=== PATIENT | female | born 1965 | race American Indian/Alaskan Native ===

== ENCOUNTER 2024-04-02 13:25 | Inpatient (IN) | payer OTHER ==
[~2024-04-02] VITALS: Ht 157.5 cm; Wt 65.8 kg
[~2024-04-02 13:25] MED LIST: ACYC400 PO; ALBU90OI INH; AMYLIPPROE PO; ASPI81CH PO; ATEN25; ATEN25 PO; Antivert25 MG PO; Aspirin EC81 MG PO; BELPHEELB PO; BENZ100A PO; BISA5EC PO; BLUE GREEN ALGAE; CEPH500 PO; CHOL10002 PO; CLIN300; CLIN300 PO; CLON.5 PO; CLON2 PO; CONEST1.25 PO; CYCL10 PO; DIAZ10 PO; DIAZ5 PO; DILT120 PO; DIPH50 PO; DOXY100 PO; Daily Multivit1 EAC2 PO; Diflucan50 MG PO; EEMT HS; ESTMET PO; ESTMETHS PO; ESTR1 PO; ESTRATEST; FAMO20 PO; GABA100 PO; GABA300 PO; HERBAL; HYDACE10B PO; HYDACE5 PO; HYDHOMSY PO; IBUHYD PO; Inderal40 MG; KAPIDEX PO; LAVAP17G PO; LEVE500 PO; LEVFLO500 PO; LEVSOD100 PO; LEVSOD50 PO; LEVSOD75; LORA.5 PO; LORA1 PO; LORA2 PO; METO25ER PO; MULVITMIND PO; NAPR500 PO; NEBI10 PO; NORT25 PO; OLAN10; OMEP10ER PO; OMEP20ER PO; OMEP40CA12 PO; ONDA4 PO; ONDA4ODT MM; OXYACE5T PO; OXYASA5T PO; OXYC10TA19 PO; OXYC5 PO; PHENO100 PO; PHENY100ER PO; PRAV20 PO; PREVPAC PO; PROM25 PO; Prozac20 MG; QUET200 PO; RANI150 PO; RXCEPH500 PO; RXCYCL10 PO; RXHYDACE PO; RXHYDMOR2 PO; RXLORA1 PO; SAPHRIS10 MG SL; SAPHRIS5 MG SL; SPIRULINA; SUCR1 PO; SUCR1SU PO; SULTRIDS PO; SUMA25 PO; Ultram50 MG PO; [UNRECOGNIZED DRUG - OTHER]; [UNRECOGNIZED DRUG - OTHER]
[2024-04-02 13:56] LABS: BASOPHILS ABSOLUTE AUTO 0.06 K/mm3 (0.00-0.23); BASOPHILS PERCENT AUTO 1 % (0-2); EOSINOPHILS ABSOLUTE AUTO 0.08 K/mm3 (0.00-0.68); EOSINOPHILS PERCENT AUTO 1 % (0-6); Hematocrit 41.6 % (33.0-51.0); Hemoglobin 13.4 g/dL (11.5-16.0); IMMATURE GRAN ABSOLUTE AUTO 0.03 K/mm3 (0.00-0.10); IMMATURE GRAN PERCENT AUTO 0 % (0-1); LYMPHOCYTES ABSOLUTE AUTO 2.27 K/mm3 (0.84-5.20); LYMPHOCYTES PERCENT AUTO 26 % (21-46); MONOCYTES ABSOLUTE AUTO 0.84 K/mm3 (0.16-1.47); MONOCYTES PERCENT AUTO 10 % (4-13); Mean Corpuscular HGB 28.9 pg (26.0-34.0); Mean Corpuscular HGB Conc 32.2 g/dL (31.5-36.5); Mean Corpuscular Volume 90 fL (80-100); Mean Platelet Volume 9.8 fL (9.1-12.4); NEUTROPHILS ABSOLUTE AUTO 5.36 K/mm3 (1.96-9.15); NEUTROPHILS PERCENT AUTO 62 % (41-73); Platelet Count 340 K/mm3 (150-400); RDW Coefficient Variation 15.3 % (11.7-14.2); RDW Standard Deviation 49.7 fL (35.1-46.3); Red Blood Cell Count 4.63 M/mm3 (3.80-5.20); White Blood Cell Count 8.64 K/mm3 (4.00-11.30)
[2024-04-02 14:25] LABS: Albumin, Blood 2.9 g/dL (3.4-5.0); Albumin/Globulin Ratio 0.8 (0.8-1.8); Bilirubin, Total 0.9 mg/dL (0.1-1.0); Bun/Creatinine Ratio 17.9 (12.0-20.0); Calcium, Blood 8.9 mg/dL (8.5-10.1); Creatinine, Blood 0.73 mg/dL (0.40-1.00); Globulin, Blood 3.8 g/dL (2.2-4.0); Potassium, Blood 4.4 mmol/L (3.5-5.5); Total Protein, Blood 6.7 g/dL (6.4-8.2)
[2024-04-02] MEDS ORDERED: Furosemide 10 MG / ML 2ML Vial IV ONE (14:55)
[2024-04-02] MEDS ORDERED: Ondansetron HCl 2 MG / ML 2ML Vial IV ONE (15:05)
[2024-04-02] MEDS ORDERED: Morphine Sulfate 4 MG/1 ML Injection IV ONE (15:10)
[2024-04-02 16:02] LABS: Influenza A, PCR NEGATIVE (NEGATIVE); Influenza B, PCR NEGATIVE (NEGATIVE); Resp Syncytial Virus, PCR NEGATIVE (NEGATIVE)
[2024-04-02 16:03] LABS: SARS-Cov-2 (COVID-19) PCR, MMC POSITIVE (NEGATIVE)
[2024-04-02 16:42] LABS: Source, Urine Clean Catch
[2024-04-02 16:47] LABS: Bilirubin, Urine Neg (Neg); Blood, Urine 1+ (Neg); Glucose Qualitative, Urine Neg (Neg); Ketones, Urine Neg (Neg); Leukocyte Esterase, Urine Neg (Neg); Nitrite, Urine Neg (Neg); Protein, Urine 2+ (Neg); Urobilinogen, Urine NORM (Normal)
[2024-04-02 17:04] LABS: U Amphetamine Screen DETECTED; U Cannabinoids Screen DETECTED; U Methamphetamine Screen DETECTED
[2024-04-02 17:04] LABS: Appearance, Urine Clear (Clear); Color, Urine Pale Yellow (P-Yellow)
[2024-04-02 17:05] LABS: Bacteria Rare /hpf; Red Blood Cells, Urine 0-2 /hpf (0-2); Squamous Epithelial Cells Few /hpf (Few); White Blood Cells, Urine 0-2 /hpf (0-5)
[2024-04-02 17:05] LABS: U Barbituate Screen Not Detected; U Benzodiazapine Screen DETECTED; U Buprenorphine Screen Not Detected; U Cocaine Screen Not Detected; U Methadone Screen Not Detected; U Oxycodone Screen Not Detected; U Phencyclidine Screen Not Detected
[2024-04-02 17:26] LABS: U Opiates Screen DETECTED
[2024-04-02] MEDS ORDERED: FLU VACC TS2024-25(6MOS UP)/PF 45 MCG/0.5 ML SYRINGE IM ONE (17:50)
[2024-04-02] MEDS ORDERED: Albuterol 2.5 MG/3 ML VIAL INH PRN (17:50)
[2024-04-02] MEDS ORDERED: Remdesivir (EUA) 200 MG in NS 250 ML IV ONE (17:55)
[2024-04-02] MEDS ORDERED: dexAMETHasone 4 MG TAB PO SCH (18:00)
[2024-04-03 05:44] LABS: Hematocrit 42.3 % (33.0-51.0); Hemoglobin 13.3 g/dL (11.5-16.0); Mean Corpuscular HGB 28.6 pg (26.0-34.0); Mean Corpuscular HGB Conc 31.4 g/dL (31.5-36.5); Mean Corpuscular Volume 91 fL (80-100); Mean Platelet Volume 10.2 fL (9.1-12.4); Platelet Count 350 K/mm3 (150-400); RDW Coefficient Variation 15.4 % (11.7-14.2); RDW Standard Deviation 50.4 fL (35.1-46.3); Red Blood Cell Count 4.65 M/mm3 (3.80-5.20); White Blood Cell Count 3.89 K/mm3 (4.00-11.30)
[2024-04-03 06:20] LABS: Magnesium, Blood 1.9 mg/dL (1.6-2.4); Thyroid Stimulating Hormone 1.2 uIU/mL (0.360-4.800)
[2024-04-03 06:21] LABS: Albumin, Blood 2.9 g/dL (3.4-5.0); Albumin/Globulin Ratio 0.7 (0.8-1.8); Bilirubin, Total 0.6 mg/dL (0.1-1.0); Bun/Creatinine Ratio 19.7 (12.0-20.0); Calcium, Blood 8.7 mg/dL (8.5-10.1); Creatinine, Blood 0.71 mg/dL (0.40-1.00); Phosphorus, Blood 4.1 mg/dL (2.5-4.9); Potassium, Blood 4.5 mmol/L (3.5-5.5); Total Protein, Blood 6.9 g/dL (6.4-8.2)
[2024-04-03] MEDS ORDERED: Furosemide 10 MG/ML 4ML Vial IV SCH ×2 (09:00→19:00)
[2024-04-03] MEDS ORDERED: Enoxaparin 40 MG/0.4 ML SYR SC SCH (09:00)
[2024-04-03 10:15] VITALS: BP 137/103
[2024-04-03] MEDS ORDERED: Acetaminophen 325 MG TABLET PO PRN (10:35)
[2024-04-03 11:07] VITALS: BP 143/99
[2024-04-03] MEDS ORDERED: TraMADol HCl 50 MG Tab PO PRN (14:00)
[2024-04-03 15:47] VITALS: BP 150/108
--- NOTE | 2024-04-03 16:54 | NUR ---
SHIFT SUMMARY PT REMAINS ALERT AND ORIENTED. BP STABLE. HR REMAINS SINUS TACH 110'S. O2 SATS HAVE REMAINED ABOVE 90% ON 2L NC. PT HAS BEEN UP AMBULATING IN THE ROOM. PT COMPLAINS OF CHRONIC BACK PAIN AT TIMES AND MEDICATED PER EMAR. WILL REPORT OFF TO ONCOMING RN
[2024-04-03] MEDS ORDERED: Remdesivir (EUA) 100 MG in NS 250 ML IV SCH (18:00)
[2024-04-03 19:17] VITALS: BP 127/90
[2024-04-04] VITALS (7 sets, daily range): BP systolic 136–154; BP diastolic 92–112
[2024-04-04 04:54] LABS: Magnesium, Blood 1.8 mg/dL (1.6-2.4)
[2024-04-04 04:55] LABS: Anion Gap 13 mmol/L (3-11); Blood Urea Nitrogen 26 mg/dL (8-24); Bun/Creatinine Ratio 33.5 (12.0-20.0); CO2, Blood 23 mmol/L (21-32); Calcium, Blood 8.5 mg/dL (8.5-10.1); Chloride, Blood 103 mmol/L (98-108); Creatinine, Blood 0.78 mg/dL (0.40-1.00); Glomerular Filtration Rate 89 (60-); Glucose, Blood 145 mg/dL (70-99); Phosphorus, Blood 4.2 mg/dL (2.5-4.9); Potassium, Blood 4.2 mmol/L (3.5-5.5); Sodium, Blood 135 mmol/L (136-145)
[2024-04-04] MEDS ORDERED: Benzonatate 100 MG Cap PO PRN (09:15)
[2024-04-04] MEDS ORDERED: Furosemide 10 MG/ML 4ML Vial IV SCH (13:00)
[2024-04-04] MEDS ORDERED: Metoprolol Succinate 25 MG TABCR PO SCH (13:00)
[2024-04-04] MEDS ORDERED: Spironolactone 25 MG Tab PO SCH (13:00)
[2024-04-04] MEDS ORDERED: Empagliflozin 10 MG TAB PO SCH (13:00)
[2024-04-04] MEDS ORDERED: Potassium Chloride 10 Meq Tablet SA PO SCH (17:00)
--- NOTE | 2024-04-04 18:10 | NUR ---
SHIFT SUMMARY PT REMAINS ALERT AND ORIENTED. BP STABLE. HR REMAINS NSR 90'S THIS AFTERNOON. PT HAS BEEN ON AND OFF 2L NC THIS SHIFT WITH SATS REMAINING ABOVE 90%. PT COUGHING CONSTANTLY THROUGHOUT SHIFT. PT MEDICATED FOR COUGH PER EMAR. PT EDUCATED MULTIPLE TIMES THROUGHOUT SHIFT ABOUT FLUID RESTRICTIONS AND PT CONTINUES TO DRINK MULTIPLE DRINKS BROUGHT IN BY FAMILY. PT IRRITABLE THIS SHIFT WHEN DISCUSSING HEART FAILURE. PT STATES THAT SHE DOES NOT HAVE HEART FAILURE AND "YOUR TEST IS WRONG". PT UP MULTIPLE TIMES IN THE ROOM INDEPENDENTLY. PT DID HAVE MULTIPLE INCONTINENT VOIDS THIS SHIFT. WILL REPORT OFF TO ONCOMING RN
[2024-04-05 03:12] VITALS: BP 133/91
[2024-04-05 05:16] LABS: Albumin, Blood 3.4 g/dL (3.4-5.0); Anion Gap 12 mmol/L (3-11); Blood Urea Nitrogen 34 mg/dL (8-24); Bun/Creatinine Ratio 36.1 (12.0-20.0); CO2, Blood 27 mmol/L (21-32); Calcium, Blood 8.9 mg/dL (8.5-10.1); Chloride, Blood 100 mmol/L (98-108); Creatinine, Blood 0.94 mg/dL (0.40-1.00); Glomerular Filtration Rate 71 (60-); Glucose, Blood 117 mg/dL (70-99); Magnesium, Blood 2.2 mg/dL (1.6-2.4); Phosphorus, Blood 5.3 mg/dL (2.5-4.9); Potassium, Blood 4.1 mmol/L (3.5-5.5); Sodium, Blood 135 mmol/L (136-145)
--- NOTE | 2024-04-05 06:50 | NUR ---
EOS: PATIENT IS STILL VERY ODD IN THE ROOM, IS MILDY UNSTEADY ON FEET, SBA WE COULD, HOWEVER, PATIENT WOULD INTENTIALLY SET OFF BED ALARM TO GET PEOPLE IN THE ROOM, WOULD BE SLEEPING, THAN WHILE AWAKE AND SEE PEOPLE CALL OUT FOR ASSISTANCE, DID NOT USE THE CALL LIGHT. INCREASED ROUNDING. PATIENT VOIDING VIA BATHROOM, HOWEVER WILL THROW PAPER TOWEL IN THE HAT. ACCURATE I/O POSSIBLE. DAILY WEIGHT PREFORMED BY PRECEPTING RN. PATIENT ON 1L VIA NC FOR >90%O2, VERY DEPLETED OXYGEN RESERVE, BECOMES ANXIOUS AND TACHYPNIC WITH EXERTION. REFUSED FLUID RESTRICTION, FAMILY AND FRIENDS WOULD BRING DRINKS, EDUCATED ON NEED TO LIMIT FLUIDS WITH CHF, DECLINED NEED. PATIENT OVERALL HAS BEEN STABLE AM LABS MINIMALLY WORSE. AFEBRILE, VSS. SR WHILE ASLEEP, 90-100'S WHILE AWAKE, EDEMA INCREASED THROUGH THE NIGHT REFUSED ELEVATION, INCREASED TRIPODING AFTER EXERTION. EDUCATED ON LIMITING FLUIDS, NO INCREASE TO O2 DEMAND. TROP ON AM LABS NO CHANGE.
[2024-04-05] MEDS ORDERED: Losartan Potassium 25 MG Tab PO SCH (09:00)
[2024-04-05 10:38] VITALS: BP 154/103
[2024-04-05 13:37] VITALS: BP 136/91
[2024-04-05] MEDS ORDERED: Carvedilol 6.25 MG Tab PO SCH (17:00)
[2024-04-05 18:26] VITALS: BP 127/81
--- NOTE | 2024-04-05 18:48 | NUR ---
SHIFT SUMMERY: NEURO: PT ALERT AND ORIENTED THROUGHOUT SHIFT. PT MOANING AND GROAING OFF AND ON DURING DAY BUT DENIES ANY COMPLAINTS WHEN ASKED IF SOMETHING IS WRONG. NO ACUTE CHANGES. CARDIAC: PT HAD A 20 BEAT RUN OF VTACH AT APPROX 0737. PROVIDER NOTIFIED AND NO ORDERS WERE GIVEN. NO OTHER CHANGES. RESP: REMAINED ON RA DURING SHIFT. DENIES ANY SOB. GI/: TO HAD AN ADEQUATE AMOUNT OF URINARY OUTPUT DURING SHIFT. NO SIGNIFICANT EVENTS HAPPEND DURING THIS SHIFT. WILL CONTINUE TO CARE FOR PT TILL END OF SHIFT.
[2024-04-05 19:45] VITALS: BP 109/89
[2024-04-05] MEDS ORDERED: NIRMATRELVIR/RITONAVIR 3 TAB BLISTER CARD PO SCH (21:00)
[2024-04-06 00:21] VITALS: BP 117/85
[2024-04-06 04:33] VITALS: BP 125/90
[2024-04-06 05:43] LABS: Mean Corpuscular HGB 28.4 pg (26.0-34.0); Mean Corpuscular HGB Conc 32.5 g/dL (31.5-36.5); Mean Corpuscular Volume 88 fL (80-100); Mean Platelet Volume 10.8 fL (9.1-12.4); NRBC ABSOLUTE 0.05 K/mm3 (0.00-0.02); NRBC Auto 0.6 /100 WBC (0.0-0.2); Platelet Count 351 K/mm3 (150-400); RDW Coefficient Variation 15.1 % (11.7-14.2); RDW Standard Deviation 47.4 fL (35.1-46.3); Red Blood Cell Count 4.57 M/mm3 (3.80-5.20); White Blood Cell Count 8.98 K/mm3 (4.00-11.30)
[2024-04-06 06:40] LABS: Magnesium, Blood 2.1 mg/dL (1.6-2.4)
[2024-04-06 06:41] LABS: Albumin, Blood 2.9 g/dL (3.4-5.0); Anion Gap 15 mmol/L (3-11); Blood Urea Nitrogen 42 mg/dL (8-24); Bun/Creatinine Ratio 38.9 (12.0-20.0); CO2, Blood 28 mmol/L (21-32); Calcium, Blood 8.3 mg/dL (8.5-10.1); Chloride, Blood 99 mmol/L (98-108); Creatinine, Blood 1.08 mg/dL (0.40-1.00); Glomerular Filtration Rate 60 (60-); Glucose, Blood 159 mg/dL (70-99); Phosphorus, Blood 4.7 mg/dL (2.5-4.9); Sodium, Blood 138 mmol/L (136-145)
--- NOTE | 2024-04-06 06:41 | NUR ---
SHIFT SUMMARY: PT IS A&OX4, ANXIOUS AT TIMES AND CALLS OUT FOR HELP. VSS ON 1L NC, O2 SATS >95%. PT IS ON OXYGEN FOR HER COMFORT. SR 90'S. PT MOANS, BUT WHEN ASKED IF SHE IS IN PAIN SHE DENIES IT. SBA TO INDEPENDENT IN ROOM. PT VOIDING LARGE AMOUNTS OF CLEAR YELLOW URINE. PT WAS INCONTINENT OF URINE, BED AND BRIEF CHANGED. NO BM THIS SHIFT. PT'S BEHAVIOR IS ERRATIC. SHE IS SOMNOLENT AT TIMES, TO FIDGETY AND RESTLESS, RIPPING OFF HER GOWN AND TELE. BED IN LOWEST POSITION, CALL LIGHT WITHIN REACH.
[2024-04-06 07:41] VITALS: BP 135/91
[2024-04-06] MEDS ORDERED: Losartan Potassium 50 MG Tab PO SCH (09:00)
[2024-04-06 12:02] VITALS: BP 113/87
[2024-04-06 15:21] VITALS: BP 126/87
[2024-04-06] MEDS ORDERED: Ondansetron HCl 2 MG / ML 2ML Vial IV PRN (15:55)
--- NOTE | 2024-04-06 17:10 | NUR ---
TRANFER SUMMARY PT A&O X4, FORGETFUL AT TIMES. SHE IS COOPERATIVE TO CARE. HR IN THE 90'S, SINUS RHYTHM, SBP STABLE, DENIES CP/PRESSURE, NUMB/TINGLING. O2 >92% ON RA, SHE REPORTS SOB OCASIONALLY AND WILL PUT ON 2L OF 02 VIA NC. PT EDUCATED ON NOT HAVING VISITORS DUE TO UNLABELED MEDS BROUGHT IN A BAG DURING CRUISE COUNSELOR. PT NOTED UNDERSTANDING AND DENIED HAVING ANY RECREATIONAL DRUGS OTHER THEN CANNABIS. PT DIURESING WELL. PT WITH PERIODS OF INCONTINENCE, BREIF IN PLACE. PT REPORTS N/V, ZOFRAN GIVEN. PT CHANGED TO MEDICAL STATUS WITH TELE. REPORT CALLED AND GIVEN TO MEDICAL FLOOR RN. PT LEFT VIA BED WITH PCT.
--- NOTE | 2024-04-06 17:43 | NUR ---
PT ARRIVED TO ROOM AT 1720 PT IS AO, BUT IS WANTING TO SIT ON BED AND ROCK. WAS TOLD PT HAS BEEN SHOWING IRREGULAR BEHAVIOR. WHEN SPOKE TO PT DOES ANSWER. SETTLED INTO ROOM AND CALL LIGHT WITHIN REACH WILL CONTINUE TO MONITOR.
--- NOTE | 2024-04-06 17:45 | NUR ---
PT HAS BACKPACK WHICH WAS SENT UP CONTAINING MARIJUANA MULTIPLE OTHER ITEMS. LOCK PACK IN CLOSET IN ROOM AND LOCKED IT. PT WAS TOLD PACK LOCKED IN.
--- NOTE | 2024-04-06 17:49 | NUR ---
PT IS AO AND COOPERATIVE OF CARE. PT IS ON 4L AND VERY SOB WITH ANY KIND OF MOVEMENT. CHRIS WAS PLACED TO KEEP PT FROM HAVING SERIOUS BREATHING PROBLEMS SHE HAS BEEN GIVEN LASIX AND WILL NEED TO VOID A LOT. PT WAS BREATHING RAPIDLY EVEN WITH SPECIAL CARE NOT TO OVER WORK HER. RT WAS CALLED AND STARTED A NEBULIZER TREATMENT IMMEDIATELY. ONCE TREATMENT WAS COMPLETED PT LOOKED MUCH BETTER AND RELAXED AND WAS ABLE TO TALK. BREATHING WAS THEN IN THE 20s. PT IS ABLE TO MAKE NEEDS KNOWN HAS CALL LIGHT WITHIN REACH WILL CONTINUE TO MONITOR.
--- NOTE | 2024-04-06 17:55 | NUR ---
PT ARRIVED AT 1720 PT IS ALERT, BUT WAS ONLY TALKING IF SPOKE TO. STARING DOWN AT GROUND AND ROCKING. WAS TOLD PT IS TO NOT HAVE VISITORS THEY THINK A FRIEND TRIED TO BRING IN POSSIBLE DRUGS. PT IS SUPPOSED TO BE INDEPENDENT. CALL LIGHT IS IN REACH WILL CONTINUE TO MONITOR.
--- NOTE | 2024-04-06 19:04 | NUR ---
PT LEFT AMA IN HER GOWN AND TOOK TELE. NO ONE WAS ABLE TO STOP HER AND SHE HAD IV IN HER ARM. POLICE CALLED AND SAID THEY WOULD REMOVE. UNABLE TO CONTACT DR MONTEIRO SO DR ALDRIDGE WAS NOTFIED OF PT GOING AMA. THIS PROGRESSIVE CARE NURSE ALSO SPOKE WITH DISPATCH TO LET THEM KNOW PT WAS NOT UNDER ANYKIND OF HOLD. TELE WAS RECOVERED BY ONE OF THE SECURITY GUARDS. PT LEFT ALL PERSONAL BELONINGS.
== END 2024-04-06 18:55 | disposition left against medical advice (07) | DRG 177 ==
LOC: ER 13:25 → ERHOLD 13:26 → PCU 04-03 10:12 → MEDS 04-06 17:15
PROVIDERS: Student in an Organized Health Care Education/Training Program; ADMIT Internal Medicine
PROC: XW033E5 Introduction of Remdesivir Anti-infective into Peripheral Vein, Percutaneous Approach, New Technology Group 5 (ICD-10-PCS; principal; 2024-04-03)
DX: U07.1 COVID-19 (principal); I50.23 Acute on chronic systolic (congestive) heart failure; J96.01 Acute respiratory failure with hypoxia; E87.1 Hypo-osmolality and hyponatremia; I42.7 Cardiomyopathy due to drug and external agent; T43.655A Adverse effect of methamphetamines, initial encounter; I27.20 Pulmonary hypertension, unspecified; I08.1 Rheumatic disorders of both mitral and tricuspid valves; F43.10 Post-traumatic stress disorder, unspecified; F41.9 Anxiety disorder, unspecified; G43.909 Migraine, unspecified, not intractable, without status migrainosus; K22.70 Barrett's esophagus without dysplasia; F13.10 Sedative, hypnotic or anxiolytic abuse, uncomplicated; F11.10 Opioid abuse, uncomplicated; Z98.890 Other specified postprocedural states; Z90.49 Acquired absence of other specified parts of digestive tract; Z90.710 Acquired absence of both cervix and uterus; Z90.722 Acquired absence of ovaries, bilateral; Z88.0 Allergy status to penicillin; Z88.8 Allergy status to other drugs, medicaments and biological substances; Z88.5 Allergy status to narcotic agent; Z87.891 Personal history of nicotine dependence; Z28.29 Immunization not carried out because of patient decision for other reason
CPT/HCPCS: 0241U; 36415; 71046; 71260; 80053; 80069; 81001; 83735; 83880; 84100; 84443; 84484; 85025; 85027; 85379; 93005; 93010; 94640; 94664; 94760; 94762; 96374; 96375; 99285-25; A9270; C8929; J0248; J1650; J1940; J2270; J2405; J7050; Q9957; Q9967

== ENCOUNTER 2024-04-06 19:15 | Emergency (ER) | payer OTHER ==
[~2024-04-06] VITALS: Ht 162.6 cm; Wt 56.7 kg
[2024-04-06 19:25] VITALS: BP 121/83
== END 2024-04-07 07:14 | disposition home or self-care (01) ==
LOC: ER 19:15
DX: F15.10 Other stimulant abuse, uncomplicated (principal); I10 Essential (primary) hypertension; G43.909 Migraine, unspecified, not intractable, without status migrainosus; F17.200 Nicotine dependence, unspecified, uncomplicated; Z88.5 Allergy status to narcotic agent; Z88.0 Allergy status to penicillin; Z88.1 Allergy status to other antibiotic agents; Z88.6 Allergy status to analgesic agent; Z91.040 Latex allergy status; Z88.8 Allergy status to other drugs, medicaments and biological substances
CPT/HCPCS: 99285

== ENCOUNTER 2024-05-12 04:24 | Emergency (ER) | payer OTHER ==
[~2024-05-12] VITALS: Ht 167.6 cm; Wt 81.7 kg
[2024-05-12 04:48] LABS: Base Excess Venous -1.9 mmol/L; Bicarbonate Venous 22.3 mmol/L (24.0-30.0); PCO2 Venous 39.9 mmHg (38-42); pH Blood Venous 7.37 (7.34-7.37)
[2024-05-12 04:50] LABS: BASOPHILS ABSOLUTE AUTO 0.04 K/mm3 (0.00-0.23); BASOPHILS PERCENT AUTO 0 % (0-2); EOSINOPHILS PERCENT AUTO 0 % (0-6); Hematocrit 36.4 % (33.0-51.0); Hemoglobin 11.7 g/dL (11.5-16.0); IMMATURE GRAN ABSOLUTE AUTO 0.05 K/mm3 (0.00-0.10); IMMATURE GRAN PERCENT AUTO 0 % (0-1); LYMPHOCYTES ABSOLUTE AUTO 1.53 K/mm3 (0.84-5.20); LYMPHOCYTES PERCENT AUTO 13 % (21-46); MONOCYTES ABSOLUTE AUTO 1.31 K/mm3 (0.16-1.47); MONOCYTES PERCENT AUTO 11 % (4-13); Mean Corpuscular HGB 27.8 pg (26.0-34.0); Mean Corpuscular HGB Conc 32.1 g/dL (31.5-36.5); Mean Corpuscular Volume 87 fL (80-100); Mean Platelet Volume 9.4 fL (9.1-12.4); NEUTROPHILS ABSOLUTE AUTO 8.92 K/mm3 (1.96-9.15); NEUTROPHILS PERCENT AUTO 75 % (41-73); Platelet Count 513 K/mm3 (150-400); RDW Coefficient Variation 17.2 % (11.7-14.2); RDW Standard Deviation 53.6 fL (35.1-46.3); Red Blood Cell Count 4.21 M/mm3 (3.80-5.20); White Blood Cell Count 11.85 K/mm3 (4.00-11.30)
[2024-05-12] MEDS ORDERED: Midazolam HCl 1MG / ML 2ML Vial IV ONE (04:50)
[2024-05-12] MEDS ORDERED: Haloperidol Lactate Inj. 5 MG/ML Injection IV ONE (05:20)
[2024-05-12 05:39] LABS: Albumin, Blood 2.8 g/dL (3.4-5.0); Albumin/Globulin Ratio 0.6 (0.8-1.8); Bilirubin, Total 1.9 mg/dL (0.1-1.0); Bun/Creatinine Ratio 34.3 (12.0-20.0); Calcium, Blood 8.8 mg/dL (8.5-10.1); Creatinine, Blood 1.02 mg/dL (0.40-1.00); Globulin, Blood 4.5 g/dL (2.2-4.0); Potassium, Blood 4.8 mmol/L (3.5-5.5); Total Protein, Blood 7.3 g/dL (6.4-8.2)
[2024-05-12 06:08] LABS: CORONAVIRUS COVID-19 AG Negative (NEGATIVE); INFLUENZA A AG Negative (NEGATIVE); INFLUENZA B AG Negative (NEGATIVE)
[2024-05-12 06:40] VITALS: BP 142/96
== END 2024-05-12 06:42 | disposition home or self-care (01) ==
LOC: ER 04:24
PROVIDERS: Emergency Medicine
DX: J96.01 Acute respiratory failure with hypoxia (principal); F41.9 Anxiety disorder, unspecified; R45.1 Restlessness and agitation; D72.829 Elevated white blood cell count, unspecified; E80.6 Other disorders of bilirubin metabolism; F19.10 Other psychoactive substance abuse, uncomplicated; I10 Essential (primary) hypertension; G43.909 Migraine, unspecified, not intractable, without status migrainosus; Z91.148 Patient's other noncompliance with medication regimen for other reason; F17.200 Nicotine dependence, unspecified, uncomplicated; Z88.5 Allergy status to narcotic agent; Z91.040 Latex allergy status; Z88.0 Allergy status to penicillin; Z88.6 Allergy status to analgesic agent; Z88.1 Allergy status to other antibiotic agents; Z88.8 Allergy status to other drugs, medicaments and biological substances
CPT/HCPCS: 71045; 80053; 82803; 84484; 85025; 87428-QW; 93005; 93010; 96374; 96375; 99285-25; J1630; J2250

== ENCOUNTER 2024-05-21 04:42 | Inpatient (IN) | payer OTHER ==
[~2024-05-21] VITALS: Ht 154.9 cm; Wt 69.4 kg
[2024-05-21] MEDS ORDERED: Haloperidol Lactate Inj. 5 MG/ML Injection IV ONE (05:15)
[2024-05-21 05:44] LABS: BASOPHILS ABSOLUTE AUTO 0.08 K/mm3 (0.00-0.23); BASOPHILS PERCENT AUTO 1 % (0-2); EOSINOPHILS PERCENT AUTO 3 % (0-6); Hematocrit 38.2 % (33.0-51.0); Hemoglobin 11.9 g/dL (11.5-16.0); IMMATURE GRAN ABSOLUTE AUTO 0.03 K/mm3 (0.00-0.10); IMMATURE GRAN PERCENT AUTO 0 % (0-1); LYMPHOCYTES ABSOLUTE AUTO 2.09 K/mm3 (0.84-5.20); LYMPHOCYTES PERCENT AUTO 22 % (21-46); MONOCYTES ABSOLUTE AUTO 0.98 K/mm3 (0.16-1.47); MONOCYTES PERCENT AUTO 10 % (4-13); Mean Corpuscular HGB 27.1 pg (26.0-34.0); Mean Corpuscular HGB Conc 31.2 g/dL (31.5-36.5); Mean Corpuscular Volume 87 fL (80-100); Mean Platelet Volume 9.5 fL (9.1-12.4); NEUTROPHILS ABSOLUTE AUTO 5.92 K/mm3 (1.96-9.15); NEUTROPHILS PERCENT AUTO 63 % (41-73); Platelet Count 445 K/mm3 (150-400); RDW Coefficient Variation 17.4 % (11.7-14.2); RDW Standard Deviation 55.6 fL (35.1-46.3); Red Blood Cell Count 4.39 M/mm3 (3.80-5.20)
[2024-05-21 06:01] LABS: Albumin, Blood 2.8 g/dL (3.4-5.0); Albumin/Globulin Ratio 0.6 (0.8-1.8); Bilirubin, Total 0.8 mg/dL (0.1-1.0); Bun/Creatinine Ratio 36.9 (12.0-20.0); Calcium, Blood 8.5 mg/dL (8.5-10.1); Creatinine, Blood 0.81 mg/dL (0.40-1.00); Globulin, Blood 4.7 g/dL (2.2-4.0); Potassium, Blood 4.6 mmol/L (3.5-5.5); Total Protein, Blood 7.5 g/dL (6.4-8.2)
[2024-05-21] MEDS ORDERED: Furosemide 10 MG/ML 4ML Vial IV ONE (06:20)
[2024-05-21 06:27] LABS: Magnesium, Blood 2.3 mg/dL (1.6-2.4)
[2024-05-21 08:08] LABS: U Barbituate Screen Not Detected; U Benzodiazapine Screen Not Detected; U Buprenorphine Screen Not Detected; U Cannabinoids Screen DETECTED; U Cocaine Screen Not Detected; U Methadone Screen Not Detected; U Opiates Screen Not Detected; U Oxycodone Screen Not Detected; U Phencyclidine Screen Not Detected
[2024-05-21 08:09] LABS: U Amphetamine Screen DETECTED; U Methamphetamine Screen DETECTED
[2024-05-21] MEDS ORDERED: FLU VACC TS2024-25(6MOS UP)/PF 45 MCG/0.5 ML SYRINGE IM SCH (09:05)
[2024-05-21] MEDS ORDERED: Ondansetron HCl 2 MG / ML 2ML Vial IV PRN (09:10)
[2024-05-21] MEDS ORDERED: Empagliflozin 10 MG TAB PO SCH (10:00)
[2024-05-21] MEDS ORDERED: Metoprolol Tartrate 25 MG Tab PO SCH (10:00)
[2024-05-21] MEDS ORDERED: Sacubitril/Valsartan 24 MG-26 MG Tab PO SCH (10:00)
[2024-05-21 10:35] VITALS: BP 148/108
--- NOTE | 2024-05-21 10:50 | NUR ---
PT ARRIVED TO ROOM AT 1020. PT AOX1 MOANING AND GROANING. PT DOESN'T TRY TO ANSWER QUESTIONS AND HAS TO BE TOLD TO USE PERWICK. PT NOT ABLE TO UNERSTAND INSTRUCTIONS ABOUT CALL LIGHT. BED ALARM HAS BEEN PLACED. WILL CONTINUE TO MONITOR.
[2024-05-21 15:09] VITALS: BP 148/110
[2024-05-21] MEDS ORDERED: Furosemide 10 MG/ML 4ML Vial IV SCH (18:00)
[2024-05-21 19:22] VITALS: BP 136/89
[2024-05-21] MEDS ORDERED: HyDROXyzine HCl 25 MG Tab PO PRN (21:20)
[2024-05-22 00:16] VITALS: BP 143/94
[2024-05-22 03:51] VITALS: BP 125/83
[2024-05-22 05:57] LABS: BASOPHILS ABSOLUTE AUTO 0.07 K/mm3 (0.00-0.23); BASOPHILS PERCENT AUTO 1 % (0-2); EOSINOPHILS ABSOLUTE AUTO 0.13 K/mm3 (0.00-0.68); EOSINOPHILS PERCENT AUTO 2 % (0-6); Hemoglobin 11.3 g/dL (11.5-16.0); IMMATURE GRAN ABSOLUTE AUTO 0.02 K/mm3 (0.00-0.10); IMMATURE GRAN PERCENT AUTO 0 % (0-1); LYMPHOCYTES ABSOLUTE AUTO 1.71 K/mm3 (0.84-5.20); LYMPHOCYTES PERCENT AUTO 20 % (21-46); MONOCYTES ABSOLUTE AUTO 0.92 K/mm3 (0.16-1.47); MONOCYTES PERCENT AUTO 11 % (4-13); Mean Corpuscular HGB 26.9 pg (26.0-34.0); Mean Corpuscular HGB Conc 31.4 g/dL (31.5-36.5); Mean Corpuscular Volume 86 fL (80-100); Mean Platelet Volume 9.7 fL (9.1-12.4); NEUTROPHILS ABSOLUTE AUTO 5.91 K/mm3 (1.96-9.15); NEUTROPHILS PERCENT AUTO 68 % (41-73); Platelet Count 436 K/mm3 (150-400); RDW Coefficient Variation 17.5 % (11.7-14.2); RDW Standard Deviation 54.5 fL (35.1-46.3); White Blood Cell Count 8.76 K/mm3 (4.00-11.30)
[2024-05-22 06:14] LABS: Calcium, Blood 8.3 mg/dL (8.5-10.1); Creatinine, Blood 0.69 mg/dL (0.40-1.00); Magnesium, Blood 2.1 mg/dL (1.6-2.4); Phosphorus, Blood 3.8 mg/dL (2.5-4.9); Potassium, Blood 3.7 mmol/L (3.5-5.5)
[2024-05-22 07:25] VITALS: BP 123/86
[2024-05-22] MEDS ORDERED: Enoxaparin 40 MG/0.4 ML SYR SC SCH (09:00)
[2024-05-22 11:46] VITALS: BP 116/75
[2024-05-22] MEDS ORDERED: ALPRAZolam 0.25 MG Tab PO PRN (12:40)
[2024-05-22] MEDS ORDERED: Lidocaine 4% 1 Patch TOP SCH (12:55)
[2024-05-22] MEDS ORDERED: Potassium Chloride 20 MEQ TabCR PO ONE (13:00)
[2024-05-22] MEDS ORDERED: Metoprolol Succinate 50 MG TABCR PO SCH (13:00)
[2024-05-22] MEDS ORDERED: Acetaminophen 500 MG Tab PO SCH (14:00)
[2024-05-22] MEDS ORDERED: Gabapentin 100 MG Cap PO SCH (14:00)
--- NOTE | 2024-05-22 15:42 | NUR ---
PATIENT THREATENING TO LEAVE [place]. ADAMENT SHE IS LEAVING [facility] EDUCATION BY THIS RN, WOODWORKING CRAFTSMAN, AND MD. PATIENT CALLED FAMILY MEMBERS AND NO ONE WOULD PICK PATIENT UP. SECURITY CALLED TO ESCORT PATIENT OUTSIDE. SISTER CAME TO BEDSIDE AND CONVINCED PATIENT TO STAY. CONVERSATION BEGAN BY THE PATIENT YELLING AND CUSSING AT THE SISTER. CONVERSATION ENDING WITH BOTH SISTER AND THE PATIENT LYING IN THE BED TOGETHER. PATIENT THEN BECAME INCREASINGLY ANXIOUS AND BREATHING HEAVILY. EDUCATED TO TAKE SLOW DEEP BREATHS. AND PATIENT RETURNED TO NORMAL BEHAVIOR. PATIENT NOW AGREEABLE TO STAY AT THE HOSPITAL, [place] PAPERWORK WAS PREVIOUSLY SIGNED. IV AND TELEMETRY REMOVED. WILL REPLACE AND CONTINUE TO MONITOR PATIENT.
--- NOTE | 2024-05-22 16:46 | NUR ---
PATIENT REFUSING BED AND CHAIR ALARM. MD NOTIFIED AND AGAINST DOCUMENTATION COMPLETED ADN IN PAPER CHART AWAITING MD SIGNATURE.
--- NOTE | 2024-05-22 18:13 | NUR ---
SHIFT SUMMARY PATIENT ALERT, ORIENTED X3. SIGNED AMA FORM TO LEAVE HOSPITAL AGAINST MEDICAL ADVICE. EDUCATION PROVIDED AGAINST LEAVING AND TIME SPENT WITH PATIENT OVER 2 HOURS BY THIS RN, , AND FURNACE UNLOADER. SISTER, ORI, CONVINCED PATIENT TO STAY. IV AND TELEMETRY REMOVED PATIENT WAS GOING TO LEAVE [place]. ONCE PATIENT DECIDED TO STAY, MD NOTIFIED AND NEW IV AND TELEMETRY PLACED AGAIN. SISTER AND FRIEND REMAIN AT BEDSIDE. AMA FORM IN PAPER CHART AWAITING DR. HERRERA'S SIGNATURE FOR REFUSAL OF BED AND CHAIR ALARM. CONTINUED DIEURESING PATIENT. TELEMETRY CALLED TO INFORM PATIENT WITH OVER 20 BEATS OF V TACH THIS AM, NO OTHER EVENTS. MD AWARE. PATIENT WITH FREQUENT URINATION. NO OTHER CONCERNS AT THIS TIME.
[2024-05-22 19:25] VITALS: BP 136/94
[2024-05-22 23:10] VITALS: BP 124/91
[2024-05-23 03:59] VITALS: BP 138/92
[2024-05-23 05:58] LABS: BASOPHILS PERCENT AUTO 1 % (0-2); EOSINOPHILS ABSOLUTE AUTO 0.16 K/mm3 (0.00-0.68); EOSINOPHILS PERCENT AUTO 2 % (0-6); Hematocrit 38.5 % (33.0-51.0); Hemoglobin 11.8 g/dL (11.5-16.0); IMMATURE GRAN ABSOLUTE AUTO 0.03 K/mm3 (0.00-0.10); IMMATURE GRAN PERCENT AUTO 0 % (0-1); LYMPHOCYTES ABSOLUTE AUTO 2.57 K/mm3 (0.84-5.20); LYMPHOCYTES PERCENT AUTO 25 % (21-46); MONOCYTES ABSOLUTE AUTO 1.38 K/mm3 (0.16-1.47); MONOCYTES PERCENT AUTO 13 % (4-13); Mean Corpuscular HGB 26.6 pg (26.0-34.0); Mean Corpuscular HGB Conc 30.6 g/dL (31.5-36.5); Mean Corpuscular Volume 87 fL (80-100); Mean Platelet Volume 9.6 fL (9.1-12.4); NEUTROPHILS ABSOLUTE AUTO 6.07 K/mm3 (1.96-9.15); NEUTROPHILS PERCENT AUTO 59 % (41-73); Platelet Count 448 K/mm3 (150-400); RDW Coefficient Variation 17.6 % (11.7-14.2); RDW Standard Deviation 55.7 fL (35.1-46.3); Red Blood Cell Count 4.43 M/mm3 (3.80-5.20); White Blood Cell Count 10.31 K/mm3 (4.00-11.30)
[2024-05-23 06:16] LABS: Bun/Creatinine Ratio 27.6 (12.0-20.0); Calcium, Blood 8.5 mg/dL (8.5-10.1); Creatinine, Blood 0.98 mg/dL (0.40-1.00); Potassium, Blood 3.6 mmol/L (3.5-5.5)
[2024-05-23 07:47] VITALS: BP 126/95
[2024-05-23] MEDS ORDERED: Potassium Chloride 20 MEQ TabCR PO ONE (08:00)
[2024-05-23] MEDS ORDERED: Spironolactone 25 MG Tab PO SCH (09:00)
[2024-05-23] MEDS ORDERED: Metoprolol Succinate 50 MG TABCR PO SCH (09:00)
--- NOTE | 2024-05-23 10:25 | NUR ---
PATIENT ADJUSTING OXYGEN INDEPENDENTLY. SPO2 >96% WITH ACTIVITY ON ROOM AIR. OXYGEN REMOVED THIS AM UPON ASSESSMENT. PATIENT REPLACED HER OWN OXYGEN TUBING AND INCREASED TO 5 LPM. EDUCATED THAT OXYGEN IS NOT NECESSARY AND AGAIN OXYGEN WAS REMOVED. LATER CAME BACK TO THE ROOM AND OXYGEN WAS BACK IN [place] AT 6 LPM. OXYGEN TUBING REMOVED FROM PATIENTS ROOM AND DISCARED. PATIENT EDUCATED AGAIN REGARDING OXYGEN NEEDS. SPO2 MONITORED AGAIN AND REMAINED ABOVE 96% ON ROOM AIR WITH ACTIVITY. PATIENT BECAME INCEREASING AGITATED, STATED "LEAVE ME ALONE". PRN ANXIETY MEDICATION ADMINISTERED PER MAY AND PATIENT EDUCATED THAT MEDICATION SHOULD HELP WITH HER NEEDS. PATIENT BECAME AGREEABLE TO TREATMENT PLAN. WILL CONTINUE TO MONITOR.
[2024-05-23] MEDS ORDERED: Metolazone 5 MG Tab PO ONE (11:50)
--- NOTE | 2024-05-23 12:30 | NUR ---
PATIENT LEFT AMA PATIENT A/OX3, ABLE TO MAKE NEEDS KNOWN. PATIENT THREATENING TO LEAVE AMA FROM BEGINNING OF SHIFT. PATIENT EDUCATED ON NEED TO STAY, SISTER AT BEDSIDE AND ALSO URGING PATIENT TO STAY IN THE HOSPITAL. SISTER LEFT FACILITY TO RUN ERRANDS AND PATIENT DECIDED TO LEAVE AMA. PATIENT CUSSING AT STAFF MEMBERS AND ADAMENT ABOUT LEAVING THE HOSPITAL. PATIENT ON ROOM AIR. HARD PRESCRIPTIONS SENT WITH PATIENT BY DR. HERRERA. IV AND TELEMETRY REMOVED PRIOR TO DISCHARGE. LEFT MESSAGE WITH SISTER TO NOTIFY HER OF PATIENT STATUS.
[2024-05-23] MEDS ORDERED: BusPIRone HCl 5 MG Tab PO SCH (14:00)
== END 2024-05-23 12:29 | disposition left against medical advice (07) | DRG 291 ==
LOC: ER 04:42 → MEDS 04:43
PROVIDERS: Emergency Medicine; Student in an Organized Health Care Education/Training Program; ADMIT Internal Medicine
DX: I11.0 Hypertensive heart disease with heart failure (principal); I50.21 Acute systolic (congestive) heart failure; I47.20 Ventricular tachycardia, unspecified; I42.7 Cardiomyopathy due to drug and external agent; T43.655A Adverse effect of methamphetamines, initial encounter; F15.10 Other stimulant abuse, uncomplicated; F41.9 Anxiety disorder, unspecified; Z91.199 Patient's noncompliance with other medical treatment and regimen due to unspecified reason; Z53.29 Procedure and treatment not carried out because of patient's decision for other reasons; G43.909 Migraine, unspecified, not intractable, without status migrainosus; Z87.19 Personal history of other diseases of the digestive system; Z90.710 Acquired absence of both cervix and uterus; Z90.722 Acquired absence of ovaries, bilateral; Z90.79 Acquired absence of other genital organ(s); Z90.49 Acquired absence of other specified parts of digestive tract; Z98.890 Other specified postprocedural states; Z86.16 Personal history of COVID-19; F17.210 Nicotine dependence, cigarettes, uncomplicated; Z88.8 Allergy status to other drugs, medicaments and biological substances; Z88.0 Allergy status to penicillin; Z88.5 Allergy status to narcotic agent; Z71.51 Drug abuse counseling and surveillance of drug abuser
CPT/HCPCS: 36415; 71045; 80048; 80053; 83735; 83880; 84100; 85025; 93005; 93010; 94760; 96372; 96374; 96375; 96376; 99285-25; A9270; G0378; J1630; J1650; J1940

== ENCOUNTER 2024-06-06 22:16 | Emergency (ER) | payer OTHER ==
[~2024-06-06] VITALS: Ht 157.5 cm; Wt 45.4 kg
[2024-06-06 23:25] LABS: BASOPHILS ABSOLUTE AUTO 0.07 K/mm3 (0.00-0.23); BASOPHILS PERCENT AUTO 1 % (0-2); EOSINOPHILS ABSOLUTE AUTO 0.25 K/mm3 (0.00-0.68); EOSINOPHILS PERCENT AUTO 3 % (0-6); Hematocrit 40.1 % (33.0-51.0); Hemoglobin 12.1 g/dL (11.5-16.0); IMMATURE GRAN ABSOLUTE AUTO 0.03 K/mm3 (0.00-0.10); IMMATURE GRAN PERCENT AUTO 0 % (0-1); LYMPHOCYTES ABSOLUTE AUTO 1.51 K/mm3 (0.84-5.20); LYMPHOCYTES PERCENT AUTO 16 % (21-46); MONOCYTES ABSOLUTE AUTO 1.38 K/mm3 (0.16-1.47); MONOCYTES PERCENT AUTO 15 % (4-13); Mean Corpuscular HGB 25.1 pg (26.0-34.0); Mean Corpuscular HGB Conc 30.2 g/dL (31.5-36.5); Mean Corpuscular Volume 83 fL (80-100); Mean Platelet Volume 9.7 fL (9.1-12.4); NEUTROPHILS ABSOLUTE AUTO 6.07 K/mm3 (1.96-9.15); NEUTROPHILS PERCENT AUTO 65 % (41-73); Platelet Count 456 K/mm3 (150-400); RDW Coefficient Variation 17.8 % (11.7-14.2); RDW Standard Deviation 53.3 fL (35.1-46.3); Red Blood Cell Count 4.83 M/mm3 (3.80-5.20); White Blood Cell Count 9.31 K/mm3 (4.00-11.30)
[2024-06-06 23:38] LABS: Albumin/Globulin Ratio 0.7 (0.8-1.8); Bilirubin, Total 1.2 mg/dL (0.1-1.0); Bun/Creatinine Ratio 27.7 (12.0-20.0); Calcium, Blood 8.5 mg/dL (8.5-10.1); Creatinine, Blood 0.8 mg/dL (0.40-1.00); Globulin, Blood 4.5 g/dL (2.2-4.0); Total Protein, Blood 7.5 g/dL (6.4-8.2)
[2024-06-07] MEDS ORDERED: Ondansetron HCl 2 MG / ML 2ML Vial IV ONE (00:15)
[2024-06-07] MEDS ORDERED: Morphine Sulfate 4 MG/1 ML Injection IV ONE (00:15)
[2024-06-07 01:05] LABS: Influenza A, PCR NEGATIVE (NEGATIVE); Influenza B, PCR NEGATIVE (NEGATIVE); Resp Syncytial Virus, PCR NEGATIVE (NEGATIVE); SARS-Cov-2 (COVID-19) PCR, MMC NEGATIVE (NEGATIVE)
[2024-06-07] MEDS ORDERED: Furosemide 10 MG/ML 4ML Vial IV ONE (02:30)
[2024-06-07 04:19] VITALS: BP 131/93
== END 2024-06-07 04:19 | disposition home or self-care (01) ==
LOC: ER 22:16
PROVIDERS: Emergency Medicine
DX: B34.9 Viral infection, unspecified (principal); I11.0 Hypertensive heart disease with heart failure; I50.20 Unspecified systolic (congestive) heart failure; I42.9 Cardiomyopathy, unspecified; G43.909 Migraine, unspecified, not intractable, without status migrainosus; F17.200 Nicotine dependence, unspecified, uncomplicated; Z88.1 Allergy status to other antibiotic agents; Z88.0 Allergy status to penicillin; Z88.5 Allergy status to narcotic agent; Z88.6 Allergy status to analgesic agent; Z88.8 Allergy status to other drugs, medicaments and biological substances; Z91.018 Allergy to other foods
CPT/HCPCS: 0241U; 71045; 80053; 83880; 84484; 85025; 93005; 93010; 96374; 96375; 99285-25; J1940; J2270; J2405

== ENCOUNTER 2024-06-09 00:57 | Emergency (ER) | payer OTHER ==
[~2024-06-09] VITALS: Ht 157.5 cm; Wt 90.7 kg
[2024-06-09 01:09] VITALS: BP 137/90
[2024-06-09] MEDS ORDERED: LevoFLOXacin 750 MG Tab PO ONE (02:00)
[2024-06-09] MEDS ORDERED: LEVO750 PO (02:04)
== END 2024-06-09 02:40 | disposition home or self-care (01) ==
LOC: ER 00:57
DX: J18.9 Pneumonia, unspecified organism (principal); R60.0 Localized edema; I10 Essential (primary) hypertension; G43.909 Migraine, unspecified, not intractable, without status migrainosus; F17.200 Nicotine dependence, unspecified, uncomplicated; Z88.1 Allergy status to other antibiotic agents; Z88.0 Allergy status to penicillin; Z88.5 Allergy status to narcotic agent; Z91.040 Latex allergy status; Z88.8 Allergy status to other drugs, medicaments and biological substances
CPT/HCPCS: 99283; A9270